=== PATIENT | female | born 1955 | race Caucasian/White ===

== ENCOUNTER → 2017-07-25 | Outpatient (CLI) | payer OTHER ==
--- NOTE | 2017-07-26 10:20 | MM ---
Reason for exam: screening (asymptomatic). Last mammogram was performed 15 years and 10 months ago. History: Patient is postmenopausal. Family history of breast cancer in aunt. Physical Findings: A clinical breast exam by your physician is recommended on an annual basis and results should be correlated with mammographic findings. MG 3D Screening Mammo W/Cad Bilateral CC and MLO view(s) were taken. Asymmetric breast tissue in the right breast. ASSESSMENT: Benign, BI-RAD 2 RECOMMENDATION: Routine screening mammogram of both breasts in 1 year.
== END | disposition home or self-care (01) ==
LOC: RADMAMWWP 14:46
PROVIDERS: ATTEND Family Medicine
DX: Z12.31 Encounter for screening mammogram for malignant neoplasm of breast (principal)
CPT/HCPCS: 77063; G0202

== ENCOUNTER → 2017-08-08 | Outpatient (CLI) | payer OTHER ==
--- NOTE | 2017-08-08 14:22 | XR ---
EXAMINATION TYPE: XR knee complete RT DATE OF EXAM: 08/08/2017 CLINICAL HISTORY: pain TECHNIQUE: Three views of the right knee are obtained. COMPARISON: None. FINDINGS: There is no acute fracture/dislocation. The tri-compartment joint spaces appear within no rmal limits. The overlying soft tissue appears unremarkable. Small suprapatellar joint effusion note d. IMPRESSION: There is no acute fracture or dislocation.ICD 10 NO FRACTURE, INITIAL EVALUATION
== END | disposition home or self-care (01) ==
LOC: RADXRMAIN 11:53
PROVIDERS: ATTEND Emergency Medicine
DX: S83.91XA Sprain of unspecified site of right knee, initial encounter (principal)

== ENCOUNTER 2017-08-09 09:33 | Day surgery (SDC) | payer OTHER ==
[2017-08-06 16:10] VITALS: BMI 23.8
[~2017-08-09 09:33] MED LIST: LACTATED RINGERS 1,000 ML IV SCH; LIDOCAINE 1% 20 ML VIAL (10MG/ML) FOR IV START INTRADERMA PRN
[2017-08-09 11:34] VITALS: RESP 16; TEMP 97.9
[2017-08-09] MEDS ORDERED: LIDOCAINE 1% INJ 10MG/ML (20 ML MDV) ONE (12:06)
[2017-08-09] MEDS ORDERED: PROPOFOL 10 MG/ML 20 ML VIAL IV ONE (12:06)
--- NOTE | 2017-08-09 12:07 | P.GSHP ---
History of Present Illness H&P Date: 08/09/17 Chief Complaint: Screening colonoscopy This is a 62-year-old female referred from Dr. King. Patient presents today for initial screening colonoscopy. She denies any significant GI complaints. Past Medical History Past Medical History: Hypertension, Thyroid Disorder Additional Past Medical History / Comment(s): hx anemia History of Any Multi-Drug Resistant Organisms: None Reported Past Surgical History: Cholecystectomy, Orthopedic Surgery, Tubal Ligation Additional Past Surgical History / Comment(s): surgery for crossed eye as child , trigger finger rt middle finger, Past Anesthesia/Blood Transfusion Reactions: Motion Sickness, Postoperative Nausea & Vomiting (PONV) Smoking Status: Never smoker - Past Family History Sister(s) Family Medical History: Cancer Medications and Allergies Home Medications Medication Instructions Recorded Confirmed Type Lisinopril [Zestril] 5 mg PO DAILY 08/06/17 08/09/17 History Allergies Allergy/AdvReac Type Severity Reaction Status Date / Time No Known Allergies Allergy Verified 08/09/17 11:35 Surgical - Exam Vital Signs Temp Pulse Resp BP Pulse Ox 97.9 F 67 16 140/79 98 08/09/17 11:33 08/09/17 11:33 08/09/17 11:33 08/09/17 11:33 08/09/17 11:33 - General well developed, no distress - Eyes PERRL - ENT normal pinna - Neck no masses - Respiratory normal expansion - Cardiovascular Rhythm: regular - Abdomen Abdomen: soft, non tender Assessment and Plan Plan: We'll perform screening colonoscopy.
--- NOTE | 2017-08-09 12:26 | P.OP ---
Date of Procedure: 08/09/17 Preoperative Diagnosis: Screening colonoscopy Postoperative Diagnosis: Normal colonoscopy Procedure(s) Performed: Colonoscopy Anesthesia: MAC Surgeon: Sathish Silva Pathology: none sent Condition: stable Disposition: PACU Description of Procedure: PROCEDURE: The patient was placed on the endoscopy table in the lateral position. Digital rectal examination was performed which revealed no abnormalities. . Flexible colonoscope was then placed in the patient's anus and passed throughout the entire colon. The ileocecal valve was visualized. The cecum, ascending, transverse, descending and sigmoid colon were normal. The rectum was normal as well. There were no masses, polyps or diverticula noted in the entire colon. SUMMARY OF FINDINGS: Normal colonoscopy.
[2017-08-09 12:49] VITALS: BP 136/78; PULSE 67
== END 2017-08-09 13:26 | disposition home or self-care (01) ==
LOC: ORWHC2ENDO 09:33
PROVIDERS: ATTEND Surgery
DX: Z12.11 Encounter for screening for malignant neoplasm of colon (principal); I10 Essential (primary) hypertension; E07.9 Disorder of thyroid, unspecified; Z79.899 Other long term (current) drug therapy
CPT/HCPCS: J2001; J2704; G0121

== ENCOUNTER → 2017-08-24 | Outpatient (CLI) | payer OTHER ==
--- NOTE | 2017-08-24 23:29 | MR ---
EXAMINATION TYPE: MR knee RT wo con DATE OF EXAM: 08/24/2017 COMPARISON: NONE HISTORY: Rt knee sprain while pushing pt onto a bed 3 wks ago TECHNIQUE: Multiplanar, multisequence imaging of the right knee is performed without IV contrast. FINDINGS: There is a knee joint effusion. There is popliteal cyst noted. This measures 5 cm in length. The anterior and posterior cruciate ligaments appear intact. There is horizontal increased signal wit hin the posterior horn of the lateral meniscus. There is intact anterior horn of the medial meniscus. There is diffuse increased signal in the posterior horn medial meniscus. There is abnormal increased signal on the T2 images in the lateral aspect of the lateral femoral cond yle. There is mild increased signal in the medial collateral ligament. The proximal tibia appears int act. There is a 6 mm area of increased signal at the base of the tibial spines. I see no definite fra cture line. IMPRESSION: Knee joint effusion and popliteal cyst. Moderate bone bruise involving lateral femoral condyle. Small area of bone bruise probably at the base of the tibial spines. Partial tear of the medial collateral ligament. Horizontal tear of the posterior horn of the lateral meniscus. Intrasubstance tear of the posterior h orn of the medial meniscus.
== END | disposition home or self-care (01) ==
LOC: RADMRIMAIN 19:37
PROVIDERS: ATTEND Emergency Medicine
DX: S83.411A Sprain of medial collateral ligament of right knee, initial encounter (principal); S83.281A Other tear of lateral meniscus, current injury, right knee, initial encounter; S83.241A Other tear of medial meniscus, current injury, right knee, initial encounter; S70.11XA Contusion of right thigh, initial encounter; M71.21 Synovial cyst of popliteal space [Baker], right knee

== ENCOUNTER 2017-11-06 08:55 | Day surgery (SDC) | payer OTHER ==
[~2017-11-06 08:55] MED LIST changes: -LACTATED RINGERS 1,000 ML IV SCH; -LIDOCAINE 1% 20 ML VIAL (10MG/ML) FOR IV START INTRADERMA PRN; +Pre Op ABX Message 1 EACH MISC MISCELLANE ONE
[2017-11-06] MEDS ORDERED: LACTATED RINGERS 1,000 ML IV SCH (09:26)
[2017-11-06] MEDS ORDERED: DEXAMETHASONE SOD PHOSPHATE 10 MG/ML 1 ML VIAL IV ONE (09:26)
[2017-11-06] MEDS ORDERED: ONDANSETRON 4 MG/2 ML VIAL IVP ONE (09:26)
[2017-11-06] MEDS ORDERED: MIDAZOLAM 2 MG/2 ML VIAL IV PRN (09:26)
[2017-11-06] MEDS ORDERED: SCOPOLAMINE 1.5MG/72HR PATCH TRANSDERM ONE (10:12)
[2017-11-06] MEDS ORDERED: diphenhydrAMINE 50 MG/ML 1 ML VIAL ONE (10:17)
[2017-11-06] MEDS ORDERED: MIDAZOLAM 2 MG/2 ML VIAL ONE (10:17)
[2017-11-06] MEDS ORDERED: LIDOCAINE 1% INJ 10MG/ML (20 ML MDV) ONE (10:17)
[2017-11-06] MEDS ORDERED: ePHEDrine SULFATE/0.9% NACL/PF 50 MG/5 ML SYRINGE IV ONE (10:17)
[2017-11-06] MEDS ORDERED: fentaNYL (PF) 50 MCG/ML 2 ML AMP ONE (10:17)
[2017-11-06] MEDS ORDERED: PROPOFOL 10 MG/ML 20 ML VIAL IV ONE (10:17)
[2017-11-06] MEDS ORDERED: BUPIVACAINE (PF) 0.5% 30 ML VIAL SQ ONE ×3 (10:49→11:16)
[2017-11-06 11:36] VITALS: TEMP 97.2
[2017-11-06] MEDS ORDERED: KETOROLAC 30 MG/ML 1 ML VIAL IVP ONE (11:45)
[2017-11-06] MEDS: HYDROmorphone 0.5 MG/0.5 ML SYRINGE IVP PRN ×2 (11:55→12:00)
[2017-11-06] MEDS ORDERED: LACTATED RINGERS 1,000 ML IV ONE (12:07)
[2017-11-06 12:49] VITALS: BP 142/77; PULSE 69; RESP 18
--- NOTE | 2017-11-08 10:50 | OP ---
OPERATIVE REPORT DATE OF PROCEDURE: 11/06/2017 SURGEON: David Cabrera DO. PREOPERATIVE DIAGNOSES: 1. Torn right knee lateral meniscus. 2. Partial tear of the ACL. 3. Degenerative joint disease of patella. POSTOPERATIVE DIAGNOSES: 1. Partial peripheral tear in the medial meniscus. 2. Torn lateral meniscus anterolateral horn. 3. Partial tear of the ACL with fragments. 4. Chondromalacia of the patella medial facet. OPERATION: 1. Right knee arthroscopy. 2. Anterolateral meniscectomy. 3. Debridement of torn ACL fragment. 4. Patella Femoral Chondroplasty ANESTHESIA: ESTIMATED BLOOD LOSS: SPECIMEN TAKEN: DESCRIPTION OF PROCEDURE: The patient was taken to the operative suite and placed on position. General inhalation anesthesia was performed by the department of anesthesiology. The patient was secured in leg blanchard and Betadine prep was carried out mid thigh to mid calf. Sterile drapes were applied in the usual manner. A superolateral inflow trocar was inserted and irrigation of the right knee was performed. The arthroscope was inserted from an anterolateral and inspection of the internal notch and the medial meniscus was carried out. Small aneurysm noted. No detachable fragments from probing. ACL showed some mild tattered ACL fragments that were probed and shaved at this time. Scope was then inserted from the anterior medial portal. There was no evidence of detachable tear of the lateral meniscus noted at this time. Peripheral tear noted The area was debrided with a shaver and basket forceps. On inspection of the suprapatellar pouch, there was a grade 2 to 3 chondromalacia of the patella and partial patella femoral chondromalacia. Joint was irrigated again copiously and all instruments removed. Portal wounds were approximated with 5-0 nylon suture. Joint was infiltrated with 0.5% Marcaine and sterile pressure dressing applied. Patient was transferred to the recovery room in satisfactory postop condition. GROSS PATHOLOGY: 1. There was anterior peripheral tearing of the medial meniscus. 2. There was evidence of an anterolateral tear of the lateral meniscus with associated anterior fragments. 3. Partial tear of the ACL with impingement fragments. 4. Grade 2 to 3 chondromalacia of the patella. MMODL / IJN: [id number] / MTDD
== END 2017-11-06 13:23 | disposition home or self-care (01) ==
LOC: OR 08:55
PROVIDERS: ATTEND Orthopaedic Surgery
DX: S83.221A Peripheral tear of medial meniscus, current injury, right knee, initial encounter (principal); S83.281A Other tear of lateral meniscus, current injury, right knee, initial encounter; S83.411A Sprain of medial collateral ligament of right knee, initial encounter; M22.41 Chondromalacia patellae, right knee; I72.8 Aneurysm of other specified arteries; S80.01XA Contusion of right knee, initial encounter; M25.461 Effusion, right knee; M71.21 Synovial cyst of popliteal space [Baker], right knee; M17.11 Unilateral primary osteoarthritis, right knee; X58.XXXA Exposure to other specified factors, initial encounter; Y99.0 Civilian activity done for income or pay; I10 Essential (primary) hypertension; E03.9 Hypothyroidism, unspecified; Z79.1 Long term (current) use of non-steroidal anti-inflammatories (NSAID); Z79.899 Other long term (current) drug therapy; Z98.51 Tubal ligation status
CPT/HCPCS: 29880; J2250; J1200; J1100; J2405; J2001; J3010; J1885; J2704

== ENCOUNTER 2018-11-30 11:24 | Emergency (ER) | payer OTHER ==
[2018-11-30 11:32] VITALS: TEMP 97.6
[2018-11-30] MEDS ORDERED: KETOROLAC 60 MG/2 ML VIAL IM STA (11:55)
[2018-11-30] MEDS ORDERED: PROPOFOL 10 MG/ML 20 ML VIAL IV STA (12:01)
--- NOTE | 2018-11-30 12:01 | ED ---
Fall HPI - General Chief Complaint: Fall Stated Complaint: fall/chest pain-[facility] Time Seen by Provider: 11/30/18 11:33 Source: patient, RN notes reviewed Mode of arrival: wheelchair Limitations: no limitations - History of Present Illness Initial Comments: 63-year-old female presents emergency Department chief complaint trip and fall. Patient states she was at work states that she was in the bathroom going to move a resident states that something fell causing her to trip. Patient fell onto her knees and chest. Patient complains of left-sided rib pain, right knee pain. She states she did strike her left knee but is not painful at this time. She has had prior knee surgery on the right. Patient denies any shortness breath but states it hurts to take a deep inspiration no head injury no loss conscious. Denies any upper extremity injury. - Related Data Home Medications Medication Instructions Recorded Confirmed Ibuprofen [Advil] 800 mg PO TID 11/30/18 11/30/18 Allergies Allergy/AdvReac Type Severity Reaction Status Date / Time No Known Allergies Allergy Verified 11/30/18 12:47 Review of Systems ROS Statement: Those systems with pertinent positive or pertinent negative responses have been documented in the HPI. ROS Other: All systems not noted in ROS Statement are negative. Past Medical History Past Medical History: Hypertension History of Any Multi-Drug Resistant Organisms: None Reported Past Surgical History: Cholecystectomy, Tubal Ligation Additional Past Surgical History / Comment(s): D&C, Past Anesthesia/Blood Transfusion Reactions: Postoperative Nausea & Vomiting ( PONV) Past Psychological History: No Psychological Hx Reported Smoking Status: Never smoker Past Alcohol Use History: None Reported Past Drug Use History: None Reported - Past Family History Sister(s) Family Medical History: Cancer Mother Family Medical History: Hypertension Father Family Medical History: Myocardial Infarction ([place]) General Exam Limitations: no limitations General appearance: alert, in no apparent distress Head exam: Present: atraumatic, normocephalic, normal inspection Neck exam: Present: normal inspection, full ROM. Absent: tenderness, meningismus, lymphadenopathy Respiratory exam: Present: normal lung sounds bilaterally. Absent: respiratory distress, wheezes, rales, rhonchi, stridor Cardiovascular Exam: Present: regular rate, normal rhythm, normal heart sounds. Absent: systolic murmur, diastolic murmur, rubs, gallop, clicks Neurological exam: Present: alert, oriented X3, CN II-XII intact, reflexes normal. Absent: motor sensory deficit Skin exam: Present: warm, dry, intact, normal color. Absent: rash Course Vital Signs 11/30/18 11:26 Temperature 97.6 F Pulse Rate 72 Respiratory 18 Rate Blood Pressure 204/107 O2 Sat by Pulse 99 Oximetry Medical Decision Making - Medical Decision Making 63-year-old female presented for a fall. Patient had x-rays of her chest, right knee. There is evidence of a patella fracture on the right. Patient will be placed in knee immobilizer and follow-up with orthopedics. She has seen Dr. Moss the past with follow-up with orthopedics associate. Disposition Clinical Impression: Fall, Patella fracture, Contusion of rib on left side Disposition: HOME SELF-CARE Condition: Stable Instructions: Rib Contusion (ED), Patellar Fracture (ED) Additional Instructions: Please return to the Emergency Department if symptoms worsen or any other concerns. Is patient prescribed a controlled substance at d/c from ED?: No Referrals: David Ortiz DO [Primary Care Provider] - 1-2 days Dave Sweet MD [STAFF PHYSICIAN] - 1-2 days Time of Disposition: 13:06
--- NOTE | 2018-11-30 13:00 | XR ---
EXAMINATION TYPE: XR knee 4V RT , 4 VIEWS DATE OF EXAM ORDERED: 11/30/2018 HISTORY: Pain. COMPARISON: Previous study dated 08/08/2017. FINDINGS: Joint spaces are reasonably well-maintained. There is a horizontal cleft through the cameron la which was not present previously and likely represents an undisplaced fracture. No joint effusion is seen. IMPRESSION: I AM HIGHLY SUSPICIOUS OF AN UNDISPLACED HORIZONTAL FRACTURES OF THE MID BODY OF THE PATELLA. CODE A: INITIAL ENCOUNTER FOR CLOSED FRACTURE.
--- NOTE | 2018-11-30 13:01 | XR ---
EXAMINATION TYPE: XR chest 2V DATE OF EXAM: 11/30/2018 HISTORY: pain. REFERENCE: Previous study dated 08/25/2018. FINDINGS: The lungs are clear. Pleural space are clear. The heart is not enlarged. IMPRESSION: NO ACUTE INTRATHORACIC ABNORMALITY.
[2018-11-30] MEDS ORDERED: ACET/COD 300 MG/30 MG STARTER PACK 6 TAB BTL PO STA (13:06)
[2018-11-30 13:46] VITALS: BP 167/85; PULSE 71; RESP 16
== END 2018-11-30 13:45 | disposition home or self-care (01) ==
LOC: EC 11:24
DX: S82.002A Unspecified fracture of left patella, initial encounter for closed fracture (principal); S20.212A Contusion of left front wall of thorax, initial encounter; Z98.890 Other specified postprocedural states; Z79.1 Long term (current) use of non-steroidal anti-inflammatories (NSAID); Z53.8 Procedure and treatment not carried out for other reasons; W01.0XXA Fall on same level from slipping, tripping and stumbling without subsequent striking against object, initial encounter; Y93.89 Activity, other specified; Y92.69 Other specified industrial and construction area as the place of occurrence of the external cause; Y99.0 Civilian activity done for income or pay
CPT/HCPCS: 73564; 71046; 99283; 96372; L1830; J1885

== ENCOUNTER 2019-03-03 19:10 | Emergency (ER) | payer OTHER ==
--- NOTE | 2019-03-03 19:30 | ED ---
Syncope HPI - General Stated Complaint: syncope Time Seen by Provider: 03/03/19 19:27 Source: RN notes reviewed, old records reviewed Limitations: no limitations - History of Present Illness Initial Comments: This is a 61-year-old female the ER for evasive syncopal event. Patient passed out once or twice what cold in the parking earlier today. No headache chest pain shortness with abdominal pain. Does have prior history of passing out extremity related to eating MD Complaint: felt faint -: hour(s) Prodromal Symptoms: none -: second(s) Witnessed: yes - by bystander Injuries Sustained Associated with Event: Head Current Symptoms: back to baseline History: previous syncopal episode Context: after urination - Related Data Home Medications Medication Instructions Recorded Confirmed Gabapentin [Neurontin] 300 mg PO TID 03/03/19 03/03/19 Lisinopril [Zestril] 10 mg PO DAILY 03/03/19 03/03/19 Allergies Allergy/AdvReac Type Severity Reaction Status Date / Time No Known Allergies Allergy Verified 03/03/19 20:31 Review of Systems ROS Statement: Those systems with pertinent positive or pertinent negative responses have been documented in the HPI. ROS Other: All systems not noted in ROS Statement are negative. Past Medical History Past Medical History: Hypertension History of Any Multi-Drug Resistant Organisms: None Reported Past Surgical History: Cholecystectomy, Tubal Ligation Additional Past Surgical History / Comment(s): D&C, Past Anesthesia/Blood Transfusion Reactions: Postoperative Nausea & Vomiting (PONV) Past Psychological History: No Psychological Hx Reported Smoking Status: Never smoker Past Alcohol Use History: None Reported Past Drug Use History: None Reported - Past Family History Sister(s) Family Medical History: Cancer Mother Family Medical History: Hypertension Father Family Medical History: Myocardial Infarction ([place]) General Exam General appearance: alert, in no apparent distress Head exam: Present: atraumatic, normocephalic, normal inspection Eye exam: Present: normal appearance, PERRL, EOMI. Absent: scleral icterus, conjunctival injection, periorbital swelling ENT exam: Present: normal exam, mucous membranes moist Neck exam: Present: normal inspection. Absent: tenderness, meningismus, lymphadenopathy Respiratory exam: Present: normal lung sounds bilaterally. Absent: respiratory distress, wheezes, rales, rhonchi, stridor Cardiovascular Exam: Present: regular rate, normal rhythm, normal heart sounds. Absent: systolic murmur, diastolic murmur, rubs, gallop, clicks GI/Abdominal exam: Present: soft, normal bowel sounds. Absent: distended, tenderness, guarding, rebound, rigid Extremities exam: Present: normal inspection, full ROM, normal capillary refill. Absent: tenderness, pedal edema, joint swelling, calf tenderness Back exam: Present: normal inspection Neurological exam: Present: alert, oriented X3, CN II-XII intact Psychiatric exam: Present: normal affect, normal mood Skin exam: Present: warm, dry, intact, normal color. Absent: rash Course Vital Signs 03/03/19 19:21 Temperature 97.7 F Pulse Rate 66 Respiratory 18 Rate Blood Pressure 148/80 O2 Sat by Pulse 100 Oximetry - Reevaluation(s) Reevaluation #1: 03/03/19 20:36 medical record is reviewed Reevaluation #2: 03/03/19 20:36 patient is without recurrent syncope EKG Findings - EKG Comments: EKG Findings:: EKG shows sinus rhythm rate of 60, GA 150, QRS 92, QTc 398 Medical Decision Making - Medical Decision Making 64 female the ER for evaluation. Patient presents today for evaluation regards to syncopal event. Patient asymptomatic and without recurrent syncope here in the ER. - Radiology Data Radiology results: report reviewed (CT brain is negative for acute disease, chest x-rays negative for acute disease), image reviewed Disposition Clinical Impression: Vasovagal syncope Disposition: HOME SELF-CARE Condition: Good Instructions (If sedation given, give patient instructions): Syncope (ED) Is patient prescribed a controlled substance at d/c from ED?: No Referrals: David Ortiz DO [Primary Care Provider] - 1-2 days
[2019-03-03] MEDS ORDERED: SODIUM CHLORIDE 0.9% 1,000 ML IV STA (19:59)
--- NOTE | 2019-03-03 20:35 | XR ---
EXAMINATION TYPE: XR chest 2V DATE OF EXAM: 03/03/2019 COMPARISON: 11/30/2018 HISTORY: Weakness TECHNIQUE: Frontal and lateral views of the chest are obtained. FINDINGS: Heart and mediastinum are normal. Lungs are clear. Diaphragm is normal. Bony thorax appear s normal. There are chest leads. IMPRESSION: Normal chest. No change.
--- NOTE | 2019-03-03 20:52 | CT ---
EXAMINATION TYPE: CT brain zechariah paulson con DATE OF EXAM: 03/03/2019 COMPARISON: None HISTORY: fall following syncopal episode, posterior head injury CT DLP: 1289.6 mGycm Automated exposure control for dose reduction was used. TECHNIQUE: CT scan of the head and cervical spine are performed without contrast. FINDINGS: Ventricles and sulci appear normal. There is no mass effect nor midline shift. There is n o sign of intracranial hemorrhage. Calvarium is intact. Cervical vertebra have fairly normal spacing and alignment. There is minor spurring of the endplates. Facet joints are intact. Skull base is intact. There is no evidence of a fracture. I see no bony charo tructive process. IMPRESSION: Negative CT scan of the brain. Minor degenerative changes in the cervical spine. Otherwise negative exam. No fracture.
[2019-03-03 20:53] LABS: Albumin 4.2 g/dL (3.5-5.0); Calcium 10.2 mg/dL (8.4-10.2); Phosphorus 4.3 mg/dL (2.5-4.5); Total Bilirubin 0.6 mg/dL (0.2-1.3)
[2019-03-03 20:55] LABS: Basophils # (A) 0.1 k/uL (0-0.2); Basophils % (A) 1 %; Eosinophils # (A) 0.4 k/uL (0-0.7); Eosinophils % (A) 6 %; HCT 40.4 % (34.0-46.0); Lymphocytes # (A) 2.3 k/uL (1.0-4.8); Lymphocytes % (A) 31 %; MCH 29.7 pg (25.0-35.0); MCHC 34.7 g/dL (31.0-37.0); MCV 85.5 fL (80.0-100.0); Mean Platelet Volume 7.7; Monocytes # (A) 0.5 k/uL (0-1.0); Monocytes % (A) 7 %; Neutrophils # (A) 3.9 k/uL (1.3-7.7); Neutrophils % (A) 53 %; Platelet Count 212 k/uL (150-450); Potassium 4.5 mmol/L (3.5-5.1); RBC 4.72 m/uL (3.80-5.40); RDW 13.7 % (11.5-15.5); WBC 7.3 k/uL (3.8-10.6)
[2019-03-03 21:33] LABS: Prothrombin Time 10.7 sec (9.0-12.0)
[2019-03-03 21:56] LABS: Partial Thromboplastin Time 19.8 sec (22.0-30.0)
[2019-03-03 22:05] LABS: Amorphous Sediment,Urine Rare /hpf; Appearance,Urine Clear (Clear); Bacteria,Urine Rare /hpf; Bilirubin,Urine Negative (Negative); Blood,Urine Negative (Negative); Color,Urine Light Yellow; Glucose,Urine (UA) Negative (Negative); Hyaline Casts,Urine 34 /lpf (0-2); Ketones,Urine Negative (Negative); Leukocyte Esterase,Urine Trace (Negative); Mucus,Urine Rare /hpf; Nitrite,Urine Negative (Negative); PH, Urine 5.5 (5.0-8.0); Protein,Urine Negative (Negative); RBC,Urine <1 /hpf (0-5); Specific Gravity,Urine 1.006 (1.001-1.035); Squamous Epithelial Cell,Urine 4 /hpf (0-4); Urobilinogen,Urine <2.0 mg/dL (<2.0); WBC,Urine 3 /hpf (0-5)
[2019-03-03 22:16] VITALS: BP 151/92; PULSE 81; RESP 20; TEMP 98.2
== END 2019-03-03 22:15 | disposition home or self-care (01) ==
LOC: EC 19:10
DX: R55 Syncope and collapse (principal); I10 Essential (primary) hypertension; Z79.899 Other long term (current) drug therapy
CPT/HCPCS: 36415; 70450; 71046; 72125; 80053; 81001; 83605; 83735; 84100; 84443; 84484; 85025; 85610; 85730; 93005; 96360; 96361; 99285

== ENCOUNTER → 2024-09-26 | Outpatient (CLI) | payer MEDICARE ==
--- NOTE | 2024-09-26 18:09 | BD ---
EXAMINATION TYPE: Axial Bone Density DATE OF EXAM: 09/26/2024 CLINICAL HISTORY: 69 years old Female. ICD-10 CODE: Z78.0 ASYMPTOMATIC POST MENOPAUSAL , Z78.0 Height: 61.25 Weight: 119 FRAX RISK QUESTIONS: Family History (Parent hip fracture): no History of Fracture in Adulthood: no Secondary Osteoporosis: no RISK FACTORS HISTORY OF: Surgery to Spine/Hip(right/left)/Wrist (right/left): no MEDICATIONS: Thyroid Medications: yes Which medication: Levothyroxine How Lon+ years Osteoporosis Medications: no EXAM MEASUREMENTS: Bone mineral densitometry was performed using the [employer] System. Bone mineral density as measured about the Lumbar spine is: ----- L1-L4(G/cm2): 0.974 T Score Values are as follows: ----- L1: -1.2 ----- L2: -1.5 ----- L3: -2.0 ----- L4: -2.1 ----- L1-L4: -1.7 Z Score Values are as follows: ----- L1: 0.8 ----- L2: 0.5 ----- L3: 0.0 ----- L4: -0.1 ----- L1-L4: 0.3 Bone mineral density baseline Bone mineral density about the R hip (g/cm2): 0.702 Bone mineral density about the L hip (g/cm2): 0.691 T Score values are as follows: -----R Neck: -2.6 -----L Neck: -2.8 -----R Total: -2.4 -----L Total: -2.5 Z Score values are as follows: -----R Neck: -0.7 -----L Neck: -0.9 -----R Total: -0.8 -----L Total: -0.9 Bone mineral density baseline FRAX%s: The graph provided illustrates a 15.5% chance for a major osteoporotic fx and a 4.5% chance f or the hips probability for fx in 10 years time. IMPRESSION: Osteoporosis (T Score less than -2.5). There is increased fracture risk and therapy is usually indicated based on age. Re-Screen 1-2 years. NOTE: T-SCORE=SD OF THE YOUNG ADULT MEAN. [facility], , 09/26/2024 6:06 PM
--- NOTE | 2024-10-06 13:26 | MM ---
Reason for Exam: Screening (asymptomatic). Last mammogram was performed 7 year(s) and 3 month(s) ago. Patient History: Menarche at age 12. First Full-Term at age 19. Postmenopausal. Maternal aunt had breast cancer. Risk Values: Lizabeth 5 year model risk: 1.4%. NCI Lifetime model risk: 4.4%. Prior Study Comparison: 08/27/2001 Bilateral Diagnostic Mammogram, [facility]. 09/17/2001 Left Special View Mammogram, [facility]. 07/25/2017 Bilateral Screening Mammogram, [facility]. Tissue Density: The breasts are heterogeneously dense, which may obscure small masses. Findings: Analyzed By CAD. Right breast: There is no suspicious group of microcalcifications or new suspicious mass. Left breast: There is no suspicious group of microcalcifications or new suspicious mass. Overall Assessment: Negative, BI-RAD 1 Management: Screening Mammogram of both breasts in [address] [facility] will attempt to contact patient to return for supplemental views and ultrasound if indicated. Patient should continue monthly self-breast exams. A clinical breast exam by your physician is recommended on an annual basis. This exam should not preclude additional follow-up of suspicious palpable abnormalities. Note on Lizabeth scores and lifetime risk: 1. A Lizabeth score greater than 3% is considered moderate risk. If this is the case, consider specialist referral to assess eligibility for a risk reducing agent. 2. If overall lifetime risk for the development of breast cancer is 20% or higher, the patient may qualify for future screening with alternating mammogram and breast MRI. [facility], , 09/26/2024 12:17 PM. Electronically signed and approved by: Preston Yepez DO
== END | disposition home or self-care (01) ==
LOC: RADMAMWWP 11:14
PROVIDERS: ATTEND Family Medicine
DX: Z12.31 Encounter for screening mammogram for malignant neoplasm of breast (principal); Z80.3 Family history of malignant neoplasm of breast; Z78.0 Asymptomatic menopausal state; R92.333 Mammographic heterogeneous density, bilateral breasts; M81.0 Age-related osteoporosis without current pathological fracture
CPT/HCPCS: 77063; 77067; 77080